=== PATIENT | female | born 1965 | race Caucasian/White ===

== ENCOUNTER 2019-10-03 11:37 | Inpatient (IN) | payer MEDICAID, OTHER ==
[~2019-10-03] VITALS: Ht 162.6 cm; Wt 97.6 kg
[2019-10-03] MEDS ORDERED: CLOZ25TA5 PO (11:52)
[2019-10-03] MEDS ORDERED: CLON0.1T83 PO (11:52)
[2019-10-03] MEDS ORDERED: ONDANSETRON HCL 4 MG/2 ML VIAL IVP ONE (13:15)
[2019-10-03] MEDS ORDERED: SODIUM CHLORIDE 0.9% 1,000 ML IV ONE (13:15)
[2019-10-03 13:43] LABS: BASOPHILS % (AUTO) 0.4 % (0.0-2.0); EOSINOPHILS % (AUTO) 0.2 % (1.0-6.0); HEMATOCRIT 43.9 % (36-46); HEMOGLOBIN 14.7 g/dL (12.0-16.0); LYMPHOCYTES # (AUTO) 1.5 K/uL (1.0-4.8); LYMPHOCYTES % (AUTO) 20.4 % (22.0-44.0); MEAN CORPUSCULAR HEMOGLOBIN 29.7 pg (26.0-34.0); MEAN CORPUSCULAR HGB CONC 33.5 G/dL (31.0-37.0); MEAN CORPUSCULAR VOLUME 89 fL (80-100); MONOCYTES # (AUTO) 0.4 K/uL (0.1-1.0); MONOCYTES % (AUTO) 5.9 % (2.0-9.0); NEUTROPHILS # (AUTO) 5.5 K/uL (1.8-7.7); NEUTROPHILS % (AUTO) 73.1 % (40.0-70.0); PLATELET COUNT (AUTO) 313 K/uL (150-450); RED BLOOD CELL COUNT(AUTO) 4.94 MIL/uL (4.00-5.20); RED CELL DISTRIBUTION WIDTH 13.7 % (11.5-14.5)
[2019-10-03 13:53] LABS: ANION GAP 9 mmol/L (8-16); CALCIUM, TOTAL 10.1 mg/dL (8.8-10.5); CARBON DIOXIDE 31 mmol/L (22-29); CHLORIDE 99 mmol/L (98-107); CREATININE 1.21 mg/dL (0.60-1.30); GLOMERULAR FILTR. RATE CALC 46 mL/min (>60); GLUCOSE,RANDOM 99 mg/dL (70-110); SODIUM SERUM 139 mmol/L (136-145); UREA NITROGEN, BLOOD 20 mg/dL (7-18)
[2019-10-03 13:55] LABS: PROTHROMBIN TIME 10.9 SEC (9.4-11.6)
[2019-10-03 14:01] LABS: LACTIC ACID 1.1 mmol/L (0.4-2.0)
[2019-10-03 14:06] LABS: ALANINE AMINOTRANSFERASE 31 U/L (12-78); ALBUMIN 4.3 g/dL (3.4-5.0); ALKALINE PHOSPHATASE 59 U/L (46-116); ASPARTATE AMINOTRANSFERASE 20 U/L (15-37); BILIRUBIN,TOTAL 0.6 mg/dL (0.1-1.0); CREATINE KINASE, TOTAL ONLY 65 U/L (26-192); HCG,QUANTITATIVE 2 mIU/mL (0-6); TOTAL PROTEIN, SERUM 8.7 g/dL (6.4-8.2)
[2019-10-03 14:13] LABS: B-TYPE NATRIURETIC PEPTIDE 18 pg/mL (0-100)
[2019-10-03] MEDS ORDERED: POTASSIUM CHLORIDE 20 MEQ ER TABLET PO ONE (14:30)
[2019-10-03] MEDS ORDERED: MAGNESIUM SULFATE 2 GM/WATER 50 ML IV ONE (14:30)
[2019-10-03] MEDS: POTASSIUM CHL 10 MEQ/WATER 50 ML IV SCH ×2 (14:58→15:51)
[2019-10-03] MEDS ORDERED: LORazepam 2 MG TABLET PO PRN (16:00)
[2019-10-03] MEDS ORDERED: ZOLPIDEM TARTRATE 10 MG TABLET PO PRN (16:00)
[2019-10-03] MEDS ORDERED: HALOPERIDOL 5 MG TABLET PO PRN (16:00)
[2019-10-03] MEDS ORDERED: PNEUMOCOCCAL VACCINE POLYVALENT 0.5 ML VIAL [PPSV23] IM ONE (16:45)
[2019-10-03] MEDS ORDERED: ACETAMINOPHEN 325 MG TABLET PO PRN (20:15)
[2019-10-03] MEDS ORDERED: PETROLATUM,WHITE 28 GM JELLY TP PRN (20:15)
[2019-10-03] MEDS ORDERED: ALBUTEROL SULFATE HFA 90 MCG/PUFF 8 GM INHALER IH PRN (20:15)
[2019-10-03] MEDS ORDERED: NICOTINE 14 MG/24 HOUR PATCH TD PRN (20:15)
[2019-10-03] MEDS ORDERED: LOPERAMIDE HCL 2 MG CAPSULE PO PRN (20:15)
[2019-10-03] MEDS ORDERED: CloNIDine HCL 0.1 MG TABLET PO PRN (20:15)
[2019-10-03] MEDS ORDERED: MAG HYDROX/AL HYDROX/SIMETH ES 30 ML SUSPENSION UDCUP PO PRN (20:15)
[2019-10-03] MEDS ORDERED: MAGNESIUM HYDROXIDE SUSPENSION 30 ML UDCUP PO PRN (20:15)
[2019-10-03] MEDS ORDERED: GuaiFENesin/D-METHORPHAN [SUGAR-FREE] 200-20MG/10 ML SYRUP UDCUP PO PRN (20:15)
[2019-10-03] MEDS ORDERED: IBUPROFEN 400 MG TABLET PO PRN (20:15)
[2019-10-03] MEDS ORDERED: DOCUSATE SODIUM 100 MG CAPSULE PO PRN (20:15)
[2019-10-03] MEDS ORDERED: ONDANSETRON HCL 4 MG TABLET PO PRN (20:15)
[2019-10-03 20:31] LABS: AMPHET/METH SCREEN,URINE NEGATIVE (NEGATIVE); BARBITURATE SCREEN, URINE NEGATIVE (NEGATIVE); BENZODIAZEPINES SCREEN,URINE NEGATIVE (NEGATIVE); CANNABINOID SCREEN,URINE NEGATIVE (NEGATIVE); COCAINE SCREEN,URINE NEGATIVE (NEGATIVE); METHADONE SCREEN, URINE NEGATIVE (NEGATIVE); OPIATE SCREEN,URINE NEGATIVE (NEGATIVE)
[2019-10-03 20:37] LABS: PHENCYCLIDINE SCREEN,URINE NEGATIVE (NEGATIVE)
[2019-10-03 20:41] LABS: APPEARANCE,URINE CLOUDY (CLEAR); BILIRUBIN,URINE PRELIM. POSITIVE (NEGATIVE); GLUCOSE, URINE (UA) NEGATIVE (NEGATIVE); KETONES,URINE 40 mg/dL (NEGATIVE); LEUKOCYTE ESTERASE ,URINE SMALL (NEGATIVE); NITRATE,URINE NEGATIVE (NEGATIVE); OCCULT BLOOD,URINE LARGE (NEGATIVE); PROTEIN,URINE SEE CONFIRM (NEGATIVE); UROBILINOGEN,URINE 0.2 mg/dL (<=1.0)
[2019-10-03 20:46] VITALS: BP 148/80
[2019-10-03 20:56] LABS: BACTERIA,URINE Many /HPF (None Seen); SULFOSALICYLIC ACID,URINE 4+ (Negative)
[2019-10-03 20:57] LABS: WBC,URINE 0-2 /HPF (0-5)
[2019-10-03 20:58] LABS: SQUAMOUS EPITHELIAL CELL,UR Moderate /LPF (None Seen); URIC ACID CRYSTALS,URINE Rare /LPF (None Seen)
[2019-10-03 20:59] LABS: AMORPHOUS SEDIMENT,UR Moderate /LPF (None Seen)
[2019-10-04 02:27] VITALS: BP 134/73
[2019-10-04 06:50] LABS: BASOPHILS % (AUTO) 0.6 % (0.0-2.0); EOSINOPHILS % (AUTO) 0.3 % (1.0-6.0); HEMATOCRIT 39.2 % (36-46); HEMOGLOBIN 13.2 g/dL (12.0-16.0); LYMPHOCYTES # (AUTO) 1.8 K/uL (1.0-4.8); LYMPHOCYTES % (AUTO) 31.1 % (22.0-44.0); MEAN CORPUSCULAR HGB CONC 33.8 G/dL (31.0-37.0); MEAN CORPUSCULAR VOLUME 89 fL (80-100); MONOCYTES # (AUTO) 0.4 K/uL (0.1-1.0); MONOCYTES % (AUTO) 6.6 % (2.0-9.0); NEUTROPHILS # (AUTO) 3.5 K/uL (1.8-7.7); NEUTROPHILS % (AUTO) 61.4 % (40.0-70.0); PLATELET COUNT (AUTO) 301 K/uL (150-450); RED BLOOD CELL COUNT(AUTO) 4.42 MIL/uL (4.00-5.20); RED CELL DISTRIBUTION WIDTH 13.7 % (11.5-14.5)
[2019-10-04 07:14] LABS: ALBUMIN 3.5 g/dL (3.4-5.0); BILIRUBIN,TOTAL 0.3 mg/dL (0.1-1.0); CALCIUM, TOTAL 9.4 mg/dL (8.8-10.5); CREATININE 1.07 mg/dL (0.60-1.30); FREE T4 (FREE THYROXINE) 1.24 ng/dL (0.76-1.46); POTASSIUM 4.1 mmol/L (3.5-5.1); THYROID STIMULATING HORMONE 1.47 uIU/mL (0.36-3.74); TOTAL PROTEIN, SERUM 7.2 g/dL (6.4-8.2)
[2019-10-04 08:17] VITALS: BP 142/93
[2019-10-04] MEDS ORDERED: ALBUTEROL SULFATE HFA 90 MCG/PUFF 8 GM INHALER IH PRN (08:30)
[2019-10-04] MEDS ORDERED: CloNIDine HCL 0.1 MG TABLET PO PRN (08:30)
[2019-10-04] MEDS ORDERED: DOCUSATE SODIUM 100 MG CAPSULE PO PRN (08:30)
[2019-10-04] MEDS ORDERED: LOPERAMIDE HCL 2 MG CAPSULE PO PRN (08:30)
[2019-10-04] MEDS ORDERED: MAG HYDROX/AL HYDROX/SIMETH ES 30 ML SUSPENSION UDCUP PO PRN (08:30)
[2019-10-04] MEDS ORDERED: ONDANSETRON HCL 4 MG TABLET PO PRN (08:30)
[2019-10-04] MEDS ORDERED: GuaiFENesin/D-METHORPHAN [SUGAR-FREE] 200-20MG/10 ML SYRUP UDCUP PO PRN (08:30)
[2019-10-04] MEDS ORDERED: PETROLATUM,WHITE 28 GM JELLY TP PRN (08:30)
[2019-10-04] MEDS ORDERED: NICOTINE 14 MG/24 HOUR PATCH TD PRN (08:30)
[2019-10-04] MEDS ORDERED: MAGNESIUM HYDROXIDE SUSPENSION 30 ML UDCUP PO PRN (08:30)
[2019-10-04] MEDS ORDERED: IBUPROFEN 400 MG TABLET PO PRN (08:30)
[2019-10-04] MEDS ORDERED: ACETAMINOPHEN 325 MG TABLET PO PRN (08:30)
[2019-10-04] MEDS: CloNIDine HCL 0.1 MG TABLET PO SCH (08:56)
[2019-10-04] MEDS: OLANZapine 10 MG TABLET PO SCH (11:05)
[2019-10-04] MEDS: CIPROFLOXACIN HCL 250 MG TABLET PO SCH (16:04)
[2019-10-04 16:45] VITALS: BP 149/88
[2019-10-05 08:24] VITALS: BP 127/66
[2019-10-05] MEDS: OLANZapine 10 MG TABLET PO SCH (09:37)
[2019-10-05] MEDS: CloNIDine HCL 0.1 MG TABLET PO SCH (09:37)
[2019-10-05] MEDS: CIPROFLOXACIN HCL 250 MG TABLET PO SCH ×2 (09:37→16:33)
[2019-10-05 17:41] VITALS: BP 144/72
[2019-10-05 21:34] VITALS: BP 137/68
[2019-10-06 08:00] VITALS: BP 140/64
[2019-10-06] MEDS: CloNIDine HCL 0.1 MG TABLET PO SCH (08:26)
[2019-10-06] MEDS: OLANZapine 10 MG TABLET PO SCH (08:26)
[2019-10-06] MEDS: CIPROFLOXACIN HCL 250 MG TABLET PO SCH ×2 (08:26→16:11)
[2019-10-06 16:50] VITALS: BP 136/76
[2019-10-07 08:00] VITALS: BP 137/104
[2019-10-07] MEDS: CloNIDine HCL 0.1 MG TABLET PO SCH (08:17)
[2019-10-07] MEDS: OLANZapine 7.5 MG TABLET PO SCH (08:17)
[2019-10-07] MEDS: CIPROFLOXACIN HCL 250 MG TABLET PO SCH ×2 (08:17→16:15)
[2019-10-07 16:18] VITALS: BP 132/68
[2019-10-08 09:05] VITALS: BP 119/79
[2019-10-08] MEDS: CIPROFLOXACIN HCL 250 MG TABLET PO SCH ×2 (10:40→16:18)
[2019-10-08] MEDS: OLANZapine 7.5 MG TABLET PO SCH (10:40)
[2019-10-08] MEDS: CloNIDine HCL 0.1 MG TABLET PO SCH (10:41)
[2019-10-08 16:00] VITALS: BP 119/60
[2019-10-09 08:00] VITALS: BP 147/72
[2019-10-09] MEDS: CloNIDine HCL 0.1 MG TABLET PO SCH (09:15)
[2019-10-09] MEDS: OLANZapine 7.5 MG TABLET PO SCH (09:16)
[2019-10-09 17:18] VITALS: BP 121/60
[2019-10-10 08:00] VITALS: BP 137/65
[2019-10-10] MEDS ORDERED: OLAN15TA18 PO (09:55)
[2019-10-10] MEDS: CloNIDine HCL 0.1 MG TABLET PO SCH (10:48)
[2019-10-10] MEDS: OLANZapine 7.5 MG TABLET PO SCH (10:48)
== END 2019-10-10 14:16 | DRG 885 ==
LOC: EMS 11:45 → 3EI 15:51 → UNDOADMIN 18:06 → B3A 18:06
PROVIDERS: ADMIT Psychiatry & Neurology Child & Adolescent Psychiatry; ATTEND Psychiatry & Neurology Child & Adolescent Psychiatry
DX: F20.0 Paranoid schizophrenia (principal); N39.0 Urinary tract infection, site not specified; E87.6 Hypokalemia; F41.9 Anxiety disorder, unspecified; D64.9 Anemia, unspecified; I10 Essential (primary) hypertension; K21.9 Gastro-esophageal reflux disease without esophagitis; Z59.0 Homelessness; Z28.21 Immunization not carried out because of patient refusal
CPT/HCPCS: 83605; 84132; 84439; 84443; 87086; 93005; 99291; G0480; J2405; J3475; J3480; 36415-L1; 36415-TC; 71045-TC

== ENCOUNTER 2019-11-16 12:14 | Emergency (ER) | payer MEDICAID, OTHER ==
[~2019-11-16] VITALS: Ht 175.3 cm; Wt 63.6 kg
[~2019-11-16 12:14] MED LIST: CLON0.1T83 PO; OLAN15TA18 PO
[2019-11-16 14:46] VITALS: BP 126/81
== END 2019-11-16 14:57 | disposition home or self-care (01) ==
LOC: EMS 12:15
DX: F20.9 Schizophrenia, unspecified (principal); I10 Essential (primary) hypertension
CPT/HCPCS: Z7502

== ENCOUNTER 2019-11-19 16:46 | Emergency (ER) | payer OTHER ==
[~2019-11-19] VITALS: Ht 175.3 cm; Wt 77.3 kg
[2019-11-19] MEDS ORDERED: OLAN10TA3 PO (17:21)
[2019-11-19] MEDS ORDERED: LISI-662 PO (17:21)
[2019-11-19] MEDS ORDERED: HYDR-1475 PO (17:21)
[2019-11-19 21:16] VITALS: BP 129/81
== END 2019-11-19 21:17 | disposition home or self-care (01) ==
LOC: EMS 16:46
DX: F41.9 Anxiety disorder, unspecified (principal); F20.9 Schizophrenia, unspecified; F69 Unspecified disorder of adult personality and behavior; I10 Essential (primary) hypertension; Z79.899 Other long term (current) drug therapy
CPT/HCPCS: Z7502